=== PATIENT | male | born 1960 ===

== ENCOUNTER 2021-07-10 17:35 | Emergency (ER) | payer MEDICAID ==
[~2021-07-10] VITALS: Ht 165.1 cm; Wt 65.0 kg
[2021-07-10] MEDS ORDERED: ALBUTEROL (0.083%) 2.5MG/3ML NEB HHN STA (18:05)
[2021-07-10] MEDS ORDERED: METHYLPREDNISOLONE SOD SUCC 125 MG/2 ML VIAL IV STA (18:05)
[2021-07-10] MEDS ORDERED: IPRATROPIUM BROMIDE (0.02%) 0.5MG/2.5ML NEB HHN STA (18:05)
[2021-07-10 19:12] LABS: BASOPHILS % 0.4 % (0.0-2.0); EOSINOPHILS % 3.4 % (0.0-5.0); HEMOGLOBIN. 13.8 g/dL (14.0-18.0); LYMPHOCYTES % 23.8 % (20.0-50.0); MEAN CORPUSCULAR HEMOGLOBIN 30.9 pg (28.0-32.0); MEAN CORPUSCULAR VOLUME 89.4 fL (80.0-94.0); MEAN PLATELET VOLUME 9.4 fl (7.4-10.4); MONOCYTES % 10.3 % (2.0-8.0); NEUTROPHILS % 62.1 % (40.0-76.0); PLATELET 209 x1000/uL (130-400); RED BLOOD CELL COUNT 4.47 mill/uL (4.7-6.1); RED CELL DISTRIBUTION WIDTH 13.6 % (11.6-14.6)
[2021-07-10 19:16] LABS: CHLORIDE 102 mEq/L (98-107)
[2021-07-10 19:45] VITALS: BP 123/82
[2021-07-10] MEDS ORDERED: ALBU90AE INH (20:08)
[2021-07-10] MEDS ORDERED: P20 MT (20:08)
== END 2021-07-10 20:17 | disposition home or self-care (01) ==
LOC: ER 17:35
DX: J45.909 Unspecified asthma, uncomplicated (principal); Z85.89 Personal history of malignant neoplasm of other organs and systems; Z20.822 Contact with and (suspected) exposure to COVID-19; Z87.891 Personal history of nicotine dependence
CPT/HCPCS: 36415; 71045; 80053; 83605; 83880; 84484; 85025; 87040; 87426; 93005; 94640; 96374; 99285; J2930; Z7610